=== PATIENT | male | born 1945 | race Caucasian/White ===

== ENCOUNTER 2016-12-28 08:11 | Outpatient (CLI) | payer MEDICARE, OTHER | END 2016-12-28 08:12 | disposition home or self-care (01) | DX: Z13.6 Encounter for screening for cardiovascular disorders (principal) ==

== ENCOUNTER 2020-08-27 15:39 | Outpatient (CLI) | payer MEDICARE, OTHER | END 2020-08-27 15:40 | disposition home or self-care (01) | LOC: COV 15:39 | PROVIDERS: ATTEND Family Medicine | DX: Z20.828 Contact with and (suspected) exposure to other viral communicable diseases (principal) ==

== ENCOUNTER 2023-04-28 22:06 | Emergency (ER) | payer MEDICARE, OTHER ==
[2023-04-28] MEDS ORDERED: ONDANSETRON 4 MG/2 ML VIAL IVP STA (23:39)
[2023-04-28] MEDS ORDERED: MORPHINE 2 MG/ML CARPUJECT IVP STA (23:39)
[2023-04-28] MEDS ORDERED: PROPOFOL 200 MG/20 ML VIAL IVP STA (23:40)
--- NOTE | 2023-04-28 23:57 | XRAY Report ---
PROCEDURE: Shoulder 3 View LT INDICATIONS: pain from fall TECHNIQUE: 3 views of the shoulder were acquired. COMPARISON: None. FINDINGS: Bones: No fractures but there is an anterior subcoracoid shoulder dislocation.. No suspicious bony lesions. Visualized ribs appear intact. Soft tissues: No suspicious soft tissue calcifications. IMPRESSION: Anterior shoulder dislocation, positioned below the coracoid process. No associated fracture found. Reviewed by: Roger Boyle MD on 04/28/2023 11:55 PM PDT Approved by: Roger Boyle MD on 04/28/2023 11:55 PM PDT Station ID: [id number]
--- NOTE | 2023-04-29 00:27 | ED Physician Documentation ---
PD HPI UPPER EXT INJURY - Stated complaint Stated Complaint: LFT SHOULDER INJURY - Chief complaint Chief Complaint: Trauma Ext - History obtained from History obtained from: Patient - Additonal information Additional information: Patient is a 77-year-old presenting for evaluation of left shoulder pain that has been present since 10:00 this morning. Patient [facility] when he tripped and fell on an escalator landing onto the left shoulder. He did not hit his head or have LOC. He was concerned about making his flight and getting back home so he did not want medical attention. He has just returned home back to [facility] and has presented to the emergency department. He has been using Tylenol today without any improvement. Denies prior injuries to the shoulder. Last ate approximately 8 hours ago. No blood thinners.No pain elsewhere. Review of Systems Constitutional: denies: Fever Cardiac: denies: Chest pain / pressure Respiratory: denies: Dyspnea GI: denies: Abdominal Pain Musculoskeletal: reports: Joint pain Neurologic: denies: Headache PD PAST MEDICAL HISTORY - Past Medical History Cardiovascular: None Respiratory: None, Sleep apnea Endocrine/Autoimmune: None GI: GERD : None HEENT: None Psych: None Musculoskeletal: None Derm: None - Past Surgical History HEENT: Cataracts - Present Medications Home Medications: Ambulatory Orders Medication Instructions Recorded Confirmed Clobetasol Propionate/Emoll 1 applic TOP DAILY PRN 01/04/16 01/27/16 [Clobetasol Emollient 0.05% Crm] Lisinopril 20 mg PO DAILY 01/04/16 01/27/16 amLODIPine [Norvasc] 5 mg PO QPM 01/04/16 01/27/16 hydroCHLOROthiazide 12.5 mg PO DAILY 01/04/16 01/27/16 [Hydrochlorothiazide] Lidocaine Patch 5% [Lidoderm Patch] 1 patch TOP DAILY PRN #10 patch 04/29/23 Oxycodone HCl/Acetaminophen 1 each PO Q6H PRN #14 tablet 04/29/23 [Percocet 5-325 mg Tablet] - Allergies Allergies/Adverse Reactions: Allergies Allergy/AdvReac Type Severity Reaction Status Date / Time No Known Drug Allergies Allergy Verified 04/28/23 22:08 - Social History Smoking Status: Never smoker PD ED PE NORMAL - General General: Alert and oriented X 3, No acute distress, Well developed/nourished - HEENT HEENT: Atraumatic, Moist mucous membranes, Pharynx benign - Neck Neck: Supple, no meningeal sign, No bony TTP, C-Spine cleared by NEXUS criteria - Cardiac Cardiac: RRR, Strong equal pulses - Respiratory Respiratory: No respiratory distress, Clear bilaterally - Extremities Extremities: Other (Deformity to the left shoulder, tenderness, pain with range of motion, normal range of motion at left elbow and more distally, no tenderness over humerus) - Neuro Neuro: Alert and oriented X 3, No motor deficit, No sensory deficit, Normal speech Results - Vitals Vitals: Vital Signs - 24 hr 04/28/23 04/29/23 04/29/23 22:08 00:28 00:34 Temperature 36.5 C Heart Rate 88 71 74 Respiratory 16 16 18 Rate Blood Pressure 160/70 H 159/80 H 143/105 H O2 Saturation 97 100 100 04/29/23 04/29/23 04/29/23 01:10 01:20 01:21 Temperature Heart Rate 64 64 62 Respiratory 16 18 16 Rate Blood Pressure 145/75 H 149/71 H O2 Saturation 97 100 04/29/23 02:00 Temperature Heart Rate 71 Respiratory 16 Rate Blood Pressure 164/81 H O2 Saturation 97 Oxygen O2 Source Room air Procedures - Reduction Body part reduced: Left, Shoulder Fracture or dislocation: Dislocation Anesthesia: Morphine, Other (Propofol) Shoulder reduction technique: Traction - counter tract Reduction aftercare: NV intact, Xray confirms reduction, Alignment improved, Sling, Patient tolerated well - Procedural sedation Sedation prep: Informed consent, Time out completed, Last meal, PE performed, ASA 1 - healthy Sedation Medications: propofol Mallampati classification: II Patient status during sedation: Drowsy, Vitals remained stable, Maintained airway, Recovered uneventfully Sedation recovery: Recovered uneventfully, Back to baseline Time in sedation (Minutes): 10 PD Medical Decision Making - ED course Complexity details: reviewed results, re-evaluated patient, d/w patient ED course: Patient is a 77-year-old male presenting for evaluation of left shoulder injury that occurred approximately 12 hours ago. No head injury. Does not take blood thinners. Vital signs are stable. X-ray of the shoulder which I reviewed demonstrates an anterior shoulder dislocation. Patient was given IV morphine and procedural sedation with propofol. Reduction was successful and post reduction films show improved alignment with no fracture. Remains neurovascularly intact. Patient recovered to his baseline. He was given pain medicine for home. He is aware of the need for follow-up with orthopedic surgery or PCP. No injuries noted elsewhere.Patient is advised on concerning symptoms to return for. Departure - Departure Disposition: Home, Self Care Clinical Impression: Dislocation of left shoulder joint Condition: Stable Instructions: ED Sedation Procedural Discon, ED Dislocation Shoulder Redu Follow-Up: Richard Neri MD [Provider Admit Priv/Credential] - Kwaku Mejia MD [Primary Care Provider] - Prescriptions: Lidocaine Patch 5% [Lidoderm Patch] 1 patch TOP DAILY PRN #10 patch PRN Reason: pain Oxycodone HCl/Acetaminophen [Percocet 5-325 mg Tablet] 1 each PO Q6H PRN #14 tablet PRN Reason: pain Comments: Your left shoulder was found to be out of place today from your fall. We gave you some pain medicine as well as medicine to sedate you and were able to put the shoulder back into place. We have put a sling on For support. Please continue to use the sling for at least the next week. I would recommend calling either your primary care provider or the orthopedic surgeon on Sunday to arrange for close follow-up. Please take caution when using the left arm particularly avoid any reaching movements especially overhead as you can redislocate the shoulder. I sent a prescription for narcotic pain medications to [facility] in [place]. Please continue with ice and anti-inflammatories. I am prescribing a short course of narcotic pain medication for you. These are potentially dangerous and addictive medications that should be used carefully. These medications may constipate you. Take an [id number] stool softener (docusate) twice daily with plenty of water while taking these medications. If you go 24 hours without a bowel movement, take [id number] miralax, per package instructions. Do not drink or drive while taking these medications. If you received narcotic or sedating medications while in the emergency department, do not drive for 24 hours. Store this medication in a safe, secure place and out of reach of children. It is a violation of federal law to give or sell this medication to another person or to use in a manner other than prescribed. The ED will not refill narcotic prescriptions, including prescriptions lost or stolen. To dispose of unwanted medications: 1. [facility] at [address] in [place] has a medication drop box. They accept prescription medications (in pill form) Sunday through Sunday 9:00 a.m. to 5:00 p.m. 2. The [facility] [employer] accepts prescription medications (in pill form only) for disposal year round. Call for more information. 3. Contact the [facility] for the next [facility] sponsored prescription drug collection event. , [phone], or [phone]; Note that many narcotic pain relievers also contain Tylenol/acetaminophen. Please ensure that your total dose of acetaminophen from all sources does not exceed 3 g (3000 mg) per day. Discharge Date/Time: 04/29/23 02:10
[2023-04-29] MEDS ORDERED: oxyCODONE/ACET 5/325 Prepack 4 PO STA (01:15)
--- NOTE | 2023-04-29 01:22 | XRAY Report ---
PROCEDURE: Shoulder 3 View LT INDICATIONS: post reduction TECHNIQUE: 3 views of the shoulder were acquired. COMPARISON: Prereduction shoulder plain films from earlier today reviewed.. FINDINGS: Bones: No fractures or dislocations. No suspicious bony lesions. Visualized ribs appear intact. Soft tissues: No suspicious soft tissue calcifications. IMPRESSION: Successful reduction of previously present anterior shoulder dislocation without visualized fracture. Normal alignment. Reviewed by: Roger Boyle MD on 04/29/2023 1:20 AM PDT Approved by: Roger Boyle MD on 04/29/2023 1:20 AM PDT Station ID: [id number]
[2023-04-29] MEDS ORDERED: LIDOCAINE PATCH 5% TOP STA (01:47)
[2023-04-29 02:11] VITALS: BP 164/81
== END 2023-04-29 02:10 | disposition home or self-care (01) ==
LOC: ED 22:06
DX: S43.005A Unspecified dislocation of left shoulder joint, initial encounter (principal); W10.0XXA Fall (on)(from) escalator, initial encounter; Y92.520 Airport as the place of occurrence of the external cause; Z79.899 Other long term (current) drug therapy
CPT/HCPCS: 23650; 73030; 96374; 99152; 99283; 99285; A9270; 94770